=== PATIENT | female | born 1975 | race Caucasian/White ===

== ENCOUNTER 2017-07-14 08:11 | Emergency (ER) | payer MEDICAID ==
[~2017-07-14] VITALS: Ht 170.2 cm; Wt 75.0 kg
[~2017-07-14 08:11] MED LIST: ALB0.5UD IH; ALB0.5UD INH; BUDE10.23 INH; CYCL-1 PO; EPIN0.3P8 IM; ESOM40CA PO; ESOM40CA30 PO; GABA-338 PO; LEVO50TA8 PO; LIDO700A5 TOP; LORA1TAB PO; LORA2TAB PO; MONT10TA21 PO; NORCO10T PO; PANT-47 PO; PROM25TA14 PO; TRAZ-89 PO
[2017-07-14] MEDS ORDERED: dexamethasone sod phosphate 10mg/ml inj IM STA (08:37)
[2017-07-14] MEDS ORDERED: proCHLORperazine 10 MG/2 ml inj IM ONE (08:40)
[2017-07-14] MEDS ORDERED: dexamethasone sod phosphate 10mg/ml inj IV STA (09:02)
[2017-07-14] MEDS ORDERED: proCHLORperazine 10 MG/2 ml inj IV ONE (09:05)
[2017-07-14] MEDS ORDERED: diphenhydrAMINE 50 mg/ml inj IV ONE (09:20)
[2017-07-14] MEDS ORDERED: normal saline 1000ML IV soln IVB ONE (09:20)
[2017-07-14] MEDS ORDERED: HYDROcodone/acetaminophen 10/325mg tab PO ONE (09:40)
[2017-07-14 11:15] VITALS: BP 139/72
== END 2017-07-14 11:17 | disposition home or self-care (01) ==
LOC: ER 08:11
DX: M54.2 Cervicalgia (principal); M54.81 Occipital neuralgia; G43.909 Migraine, unspecified, not intractable, without status migrainosus; J44.9 Chronic obstructive pulmonary disease, unspecified; Z88.2 Allergy status to sulfonamides; Z91.013 Allergy to seafood
CPT/HCPCS: 96361; 96374; 96375; 99284; J1200; J7030; J0780; J1100

== ENCOUNTER 2017-07-16 22:43 | Emergency (ER) | payer MEDICAID ==
[~2017-07-16] VITALS: Ht 170.2 cm; Wt 76.0 kg
[2017-07-16 23:29] LABS: BASOPHILS # (AUTO) 0.1 X10'3 (0-0.2); BASOPHILS % (AUTO) 0.9 % (0-1); EOSINOPHILS # (AUTO) 0.1 X10'3 (0-0.9); EOSINOPHILS % (AUTO) 1.2 % (0-6); HEMATOCRIT 38.1 % (35.0-45.0); HEMOGLOBIN 12.9 g/dl (12.0-16.0); LYMPHOCYTES # (AUTO) 1.9 X10'3 (1.1-4.8); LYMPHOCYTES % (AUTO) 28.5 % (21-51); MEAN CORPUSCULAR HEMOGLOBIN 30.6 PG (27.0-31.0); MEAN CORPUSCULAR HGB CONC 33.9 % (33.0-36.5); MEAN CORPUSCULAR VOLUME 90.3 FL (78-98); MEAN PLATELET VOLUME 7.6 FL (7.4-10.4); MONOCYTES # (AUTO) 0.5 X10'3 (0-0.9); MONOCYTES % (AUTO) 7.7 % (2-12); NEUTROPHILS % (AUTO) 61.7 % (42-75); PLATELET COUNT 224 X10'3 (140-440); RED BLOOD COUNT 4.22 X10'6 (4.20-5.60); RED CELL DISTRIBUTION WIDTH 13.9 % (11.5-14.5); WHITE BLOOD COUNT 6.5 X10'3 (4.5-11.0)
[2017-07-16 23:42] LABS: ALANINE AMINOTRANSFERASE 63 U/L (12-78); ALBUMIN 4.1 G/DL (3.4-5.0); ALBUMIN/GLOBULIN RATIO 1.1 (1.1-1.5); ALKALINE PHOSPHATASE 51 IU/L (46-116); ANION GAP 10 (8-16); ASPARTATE AMINO TRANSFERASE 23 U/L (10-37); BILIRUBIN,TOTAL 0.6 MG/DL (0.1-1.0); BLOOD UREA NITROGEN 15 MG/DL (7-18); BUN/CREATININE RATIO 16.7 (6.6-38.0); CHLORIDE 106 MMOL/L (99-107); GLUCOSE 95 MG/DL (70-104); POTASSIUM 3.5 MMOL/L (3.5-5.1); SODIUM 141 MMOL/L (135-145); TOTAL CARBON DIOXIDE 24.9 MMOL/L (24-32); TOTAL PROTEIN 7.9 G/DL (6.4-8.2); eGFR 69 ML/MIN
[2017-07-16 23:59] LABS: CLARITY,URINE CLEAR (Clear); GLUCOSE, URINE NEGATIVE (Neg); KETONES,URINE NEGATIVE (Neg); LEUKOCYTE ESTERASE ,URINE NEGATIVE (Neg); NITRITES, URINE NEGATIVE (Neg); OCCULT BLOOD,URINE NEGATIVE (Neg); PROTEIN,URINE NEGATIVE (Neg)
[2017-07-17 00:02] LABS: COLOR,URINE DARK YELLOW (Yellow); UA COLLECTION TYPE CLN CATCH MIDSTREAM
[2017-07-17] MEDS ORDERED: LORazepam 2 mg/ml vial IM ONE (00:20)
[2017-07-17] MEDS ORDERED: ondansetron/PF 4mg/2ml inj IM ONE (00:20)
[2017-07-17] MEDS ORDERED: proCHLORperazine 10 MG/2 ml inj IM ONE (00:20)
[2017-07-17] MEDS ORDERED: ONDA8TAB9 PO (00:21)
[2017-07-17] MEDS ORDERED: ondansetron 4mg rapidly disintigrating tab PO ONE (00:50)
[2017-07-17 01:06] VITALS: BP 133/82
== END 2017-07-17 01:08 | disposition home or self-care (01) ==
LOC: ER 22:44
DX: K52.9 Noninfective gastroenteritis and colitis, unspecified (principal); J44.9 Chronic obstructive pulmonary disease, unspecified; G89.29 Other chronic pain; G43.909 Migraine, unspecified, not intractable, without status migrainosus; Z88.2 Allergy status to sulfonamides; Z91.013 Allergy to seafood; Z79.899 Other long term (current) drug therapy
CPT/HCPCS: 36415; 80053; 81003; 85025; 85610; 96372; 99284; J0780; J2060

== ENCOUNTER 2017-09-03 17:19 | Emergency (ER) | payer MEDICAID ==
[~2017-09-03] VITALS: Ht 170.2 cm; Wt 77.9 kg
[~2017-09-03 17:19] MED LIST changes: +ONDA8TAB9 PO
[2017-09-03] MEDS ORDERED: HYDROcodone/acetaminophen 5mg/325mg tablet PO STA (17:27)
[2017-09-03] MEDS ORDERED: IBUP-1984 PO (18:54)
[2017-09-03 19:02] VITALS: BP 122/73
== END 2017-09-03 19:04 | disposition home or self-care (01) ==
LOC: ER 17:20
DX: S60.211A Contusion of right wrist, initial encounter (principal); G43.909 Migraine, unspecified, not intractable, without status migrainosus; J44.9 Chronic obstructive pulmonary disease, unspecified; G89.29 Other chronic pain; Z88.2 Allergy status to sulfonamides; Z91.013 Allergy to seafood; Z79.899 Other long term (current) drug therapy; W22.8XXA Striking against or struck by other objects, initial encounter; Y93.89 Activity, other specified; Y92.89 Other specified places as the place of occurrence of the external cause; Y99.8 Other external cause status
CPT/HCPCS: 29125; 73110; 73130; 99284

== ENCOUNTER 2018-01-09 19:41 | Emergency (ER) | payer MEDICAID ==
[~2018-01-09] VITALS: Ht 170.2 cm; Wt 64.8 kg
[~2018-01-09 19:41] MED LIST changes: +LIDO20SO16 PO
[2018-01-09] MEDS ORDERED: ondansetron/PF 4mg/2ml inj IV ONE (19:55)
[2018-01-09] MEDS ORDERED: normal saline 1000ML IV soln IVB ONE (19:55)
[2018-01-09] MEDS ORDERED: morphine 4 MG/ML inj SYRINge IV ONE (19:55)
[2018-01-09 20:41] LABS: BASOPHILS # (AUTO) 0.1 X10'3 (0-0.2); EOSINOPHILS # (AUTO) 0.2 X10'3 (0-0.9); EOSINOPHILS % (AUTO) 3.1 % (0-6); HEMATOCRIT 36.3 % (35.0-45.0); HEMOGLOBIN 12.1 g/dl (12.0-16.0); LYMPHOCYTES # (AUTO) 1.6 X10'3 (1.1-4.8); LYMPHOCYTES % (AUTO) 28.8 % (21-51); MEAN CORPUSCULAR HEMOGLOBIN 30.6 PG (27.0-31.0); MEAN CORPUSCULAR HGB CONC 33.3 % (33.0-36.5); MEAN PLATELET VOLUME 7.9 FL (7.4-10.4); MONOCYTES # (AUTO) 0.5 X10'3 (0-0.9); MONOCYTES % (AUTO) 8.5 % (2-12); NEUTROPHILS # (AUTO) 3.2 X10'3 (1.8-7.7); NEUTROPHILS % (AUTO) 58.6 % (42-75); PLATELET COUNT 184 X10'3 (140-440); RED BLOOD COUNT 3.94 X10'6 (4.20-5.60); RED CELL DISTRIBUTION WIDTH 13.8 % (11.5-14.5); WHITE BLOOD COUNT 5.5 X10'3 (4.5-11.0)
[2018-01-09 21:06] LABS: ALANINE AMINOTRANSFERASE 42 U/L (12-78); ALBUMIN 3.5 G/DL (3.4-5.0); ALKALINE PHOSPHATASE 58 IU/L (46-116); ANION GAP 10 (8-16); ASPARTATE AMINO TRANSFERASE 25 U/L (10-37); BILIRUBIN,TOTAL 0.3 MG/DL (0.1-1.0); BLOOD UREA NITROGEN 15 MG/DL (7-18); BUN/CREATININE RATIO 18.5 (6.6-38.0); CALCIUM 9.2 MG/DL (8.5-10.1); CHLORIDE 106 MMOL/L (99-107); CREATININE 0.81 MG/DL (0.40-0.90); GLUCOSE 109 MG/DL (70-104); POTASSIUM 3.7 MMOL/L (3.5-5.1); SODIUM 141 MMOL/L (135-145); TOTAL CARBON DIOXIDE 24.6 MMOL/L (24-32); eGFR 78 ML/MIN
[2018-01-09 22:07] LABS: URINE HCG NEGATIVE (NEG)
[2018-01-09 22:09] LABS: CLARITY,URINE CLEAR (Clear); COLOR,URINE YELLOW (Yellow); GLUCOSE, URINE NEGATIVE (Neg); KETONES,URINE NEGATIVE (Neg); LEUKOCYTE ESTERASE ,URINE NEGATIVE (Neg); NITRITES, URINE NEGATIVE (Neg); OCCULT BLOOD,URINE NEGATIVE (Neg); PROTEIN,URINE NEGATIVE (Neg); UROBILINOGEN,URINE 0.2 E.U/dL (0.2-1.0)
[2018-01-09 22:11] LABS: UA COLLECTION TYPE CLN CATCH MIDSTREAM
[2018-01-09] MEDS ORDERED: HYDR-4353 PO (22:24)
[2018-01-09 22:35] VITALS: BP 133/82
== END 2018-01-09 22:38 | disposition home or self-care (01) ==
LOC: ER 19:42 → MERGE 19:42 → ER 22:38
DX: R10.2 Pelvic and perineal pain (principal); R10.32 Left lower quadrant pain; Z88.2 Allergy status to sulfonamides
CPT/HCPCS: 36415; 76830; 76856; 80053; 81003; 81025; 85025; 96374; 96375; 99285; J2270; J2405

== ENCOUNTER 2018-01-12 01:55 | Emergency (ER) | payer MEDICAID ==
[~2018-01-12] VITALS: Ht 170.2 cm; Wt 70.1 kg
[~2018-01-12 01:55] MED LIST changes: +HYDR-4353 PO
[2018-01-12 02:09] VITALS: BP 134/88
== END 2018-01-12 03:12 | disposition left against medical advice (07) ==
LOC: ER 01:55
DX: F41.9 Anxiety disorder, unspecified (principal); Z53.21 Procedure and treatment not carried out due to patient leaving prior to being seen by health care provider

== ENCOUNTER 2018-01-16 16:35 | Emergency (ER) | payer MEDICAID ==
[~2018-01-16] VITALS: Ht 170.2 cm; Wt 73.0 kg
[2018-01-16 17:07] LABS: CLARITY,URINE CLEAR (Clear); COLOR,URINE YELLOW (Yellow); GLUCOSE, URINE NEGATIVE (Neg); KETONES,URINE 15 mg/dl (Neg); LEUKOCYTE ESTERASE ,URINE NEGATIVE (Neg); NITRITES, URINE NEGATIVE (Neg); OCCULT BLOOD,URINE NEGATIVE (Neg); PH,URINE 6.5 (4.8-8.0); PROTEIN,URINE NEGATIVE (Neg); UROBILINOGEN,URINE 0.2 E.U/dL (0.2-1.0)
[2018-01-16 17:08] LABS: UA COLLECTION TYPE CLN CATCH MIDSTREAM
[2018-01-16] MEDS ORDERED: ketorolac trometh inj. 60 MG/2 ML VIAL IM ONE (18:10)
[2018-01-16 18:24] VITALS: BP 116/73
== END 2018-01-16 18:33 | disposition home or self-care (01) ==
LOC: ER 16:42
DX: R10.32 Left lower quadrant pain (principal); R19.7 Diarrhea, unspecified; R11.2 Nausea with vomiting, unspecified; J44.9 Chronic obstructive pulmonary disease, unspecified; G89.29 Other chronic pain; Z88.2 Allergy status to sulfonamides; Z91.013 Allergy to seafood; Z79.899 Other long term (current) drug therapy
CPT/HCPCS: 74176; 81003; 96372; 99285; J1885

== ENCOUNTER 2018-01-21 18:35 | Emergency (ER) | payer MEDICAID ==
[~2018-01-21] VITALS: Ht 170.2 cm; Wt 73.5 kg
[2018-01-21 18:58] LABS: BASOPHILS % (AUTO) 0.6 % (0-1); EOSINOPHILS # (AUTO) 0.1 X10'3 (0-0.9); HEMOGLOBIN 13.6 g/dl (12.0-16.0); LYMPHOCYTES # (AUTO) 1.7 X10'3 (1.1-4.8); LYMPHOCYTES % (AUTO) 24.9 % (21-51); MEAN CORPUSCULAR HEMOGLOBIN 30.6 PG (27.0-31.0); MEAN CORPUSCULAR HGB CONC 33.2 % (33.0-36.5); MEAN CORPUSCULAR VOLUME 92.1 FL (78-98); MEAN PLATELET VOLUME 7.8 FL (7.4-10.4); MONOCYTES # (AUTO) 0.5 X10'3 (0-0.9); MONOCYTES % (AUTO) 7.1 % (2-12); NEUTROPHILS # (AUTO) 4.6 X10'3 (1.8-7.7); NEUTROPHILS % (AUTO) 66.4 % (42-75); PLATELET COUNT 228 X10'3 (140-440); RED BLOOD COUNT 4.45 X10'6 (4.20-5.60); RED CELL DISTRIBUTION WIDTH 13.2 % (11.5-14.5); WHITE BLOOD COUNT 6.9 X10'3 (4.5-11.0)
[2018-01-21 19:13] LABS: ALANINE AMINOTRANSFERASE 42 U/L (12-78); ALBUMIN 4.1 G/DL (3.4-5.0); ALBUMIN/GLOBULIN RATIO 1.1 (1.1-1.5); ALKALINE PHOSPHATASE 49 IU/L (46-116); ANION GAP 10 (8-16); ASPARTATE AMINO TRANSFERASE 17 U/L (10-37); BILIRUBIN,TOTAL 0.5 MG/DL (0.1-1.0); BLOOD UREA NITROGEN 19 MG/DL (7-18); BUN/CREATININE RATIO 19.8 (6.6-38.0); CALCIUM 9.9 MG/DL (8.5-10.1); CHLORIDE 103 MMOL/L (99-107); CREATININE 0.96 MG/DL (0.40-0.90); GLUCOSE 88 MG/DL (70-104); POTASSIUM 3.9 MMOL/L (3.5-5.1); SODIUM 140 MMOL/L (135-145); TOTAL CARBON DIOXIDE 26.8 MMOL/L (24-32); eGFR 64 ML/MIN
[2018-01-21 19:18] LABS: PARTIAL THROMBOPLASTIN TIME 27 SECONDS (22-32); PROTHROMBIN TIME 10.3 SECONDS (9.0-12.0)
[2018-01-21] MEDS ORDERED: aspirin 81mg tab.chew PO ONE (19:20)
[2018-01-21] MEDS ORDERED: ketorolac trometh. 30mg/ml inj. IV ONE (20:10)
[2018-01-21] MEDS ORDERED: acetaminophen 325mg tablet PO ONE (20:10)
[2018-01-21] MEDS ORDERED: ondansetron/PF 4mg/2ml inj IV ONE (20:25)
[2018-01-21 20:36] VITALS: BP 115/50
== END 2018-01-21 20:38 | disposition home or self-care (01) ==
LOC: ER 18:36
DX: M94.0 Chondrocostal junction syndrome [Tietze] (principal); R07.9 Chest pain, unspecified; R20.2 Paresthesia of skin; R05 Cough; K59.00 Constipation, unspecified; R09.89 Other specified symptoms and signs involving the circulatory and respiratory systems; R07.2 Precordial pain; R11.10 Vomiting, unspecified; J44.9 Chronic obstructive pulmonary disease, unspecified; G43.909 Migraine, unspecified, not intractable, without status migrainosus; Z88.2 Allergy status to sulfonamides; Z91.013 Allergy to seafood; Z88.4 Allergy status to anesthetic agent; Z79.899 Other long term (current) drug therapy
CPT/HCPCS: 36415; 71045; 80053; 84484; 85025; 85610; 85730; 93005; 96374; 96375; 99285; J1885; J2405

== ENCOUNTER 2018-02-09 18:10 | Emergency (ER) | payer MEDICAID ==
[~2018-02-09] VITALS: Ht 170.2 cm; Wt 77.3 kg
[2018-02-09 18:34] VITALS: BP 113/73
== END 2018-02-09 19:47 | disposition left against medical advice (07) ==
LOC: ER 18:10
DX: R51 Headache (principal); Z53.21 Procedure and treatment not carried out due to patient leaving prior to being seen by health care provider

== ENCOUNTER 2018-02-10 08:14 | Emergency (ER) | payer MEDICAID ==
[~2018-02-10] VITALS: Ht 170.2 cm; Wt 75.0 kg
[2018-02-10] MEDS ORDERED: dexamethasone sod phosphate 10mg/ml inj IV STA (08:31)
[2018-02-10] MEDS ORDERED: metoclopramide 5 mg/ml inj IV ONE (08:35)
[2018-02-10] MEDS ORDERED: LORazepam 2 mg/ml vial IV ONE (08:35)
[2018-02-10] MEDS ORDERED: ketorolac trometh. 30mg/ml inj. IV ONE (08:35)
[2018-02-10] MEDS ORDERED: normal saline 1000ML IV soln IVB ONE (08:35)
[2018-02-10] MEDS ORDERED: ondansetron/PF 4mg/2ml inj IV ONE (09:30)
[2018-02-10] MEDS ORDERED: haloperidol lactate 5mg/ml inj IM ONE (09:45)
[2018-02-10 10:32] VITALS: BP 110/64
== END 2018-02-10 10:40 | disposition home or self-care (01) ==
LOC: ER 08:14
DX: G43.909 Migraine, unspecified, not intractable, without status migrainosus (principal); G43.A1 Cyclical vomiting, in migraine, intractable; M54.2 Cervicalgia; M62.838 Other muscle spasm; J44.9 Chronic obstructive pulmonary disease, unspecified; G89.29 Other chronic pain; F17.200 Nicotine dependence, unspecified, uncomplicated; F12.90 Cannabis use, unspecified, uncomplicated; Z88.2 Allergy status to sulfonamides; Z91.013 Allergy to seafood; Z79.899 Other long term (current) drug therapy
CPT/HCPCS: 96361; 96372; 96374; 96375; 99283; J1100; J1630; J1885; J2060; J2405; J2765; J7030

== ENCOUNTER 2018-04-11 08:01 | Emergency (ER) | payer MEDICAID ==
[~2018-04-11] VITALS: Ht 170.2 cm; Wt 76.0 kg
[~2018-04-11 08:01] MED LIST changes: -HYDR-4353 PO
[2018-04-11] MEDS ORDERED: HYDR-4353 PO (08:17)
[2018-04-11] MEDS ORDERED: NAPR-56 PO (08:17)
[2018-04-11] MEDS ORDERED: LIDOcaine 5% patch TP ONE (08:20)
[2018-04-11 08:54] VITALS: BP 107/76
== END 2018-04-11 09:33 | disposition home or self-care (01) ==
LOC: ER 08:01
DX: M87.9 Osteonecrosis, unspecified (principal); G43.909 Migraine, unspecified, not intractable, without status migrainosus; J44.9 Chronic obstructive pulmonary disease, unspecified; G89.29 Other chronic pain; M54.9 Dorsalgia, unspecified; F12.90 Cannabis use, unspecified, uncomplicated; Z88.2 Allergy status to sulfonamides; Z91.013 Allergy to seafood; W10.9XXA Fall (on) (from) unspecified stairs and steps, initial encounter; Y93.89 Activity, other specified; Y92.89 Other specified places as the place of occurrence of the external cause; Y99.8 Other external cause status
CPT/HCPCS: 73502; 99284